=== PATIENT | female | born 1965 | race African-American/Black ===

== ENCOUNTER 2018-10-11 06:34 | Emergency (ER) | payer MEDICAID ==
[~2018-10-11] VITALS: Ht 165.1 cm; Wt 99.8 kg
[2018-10-11 08:22] VITALS: BP 134/75
== END 2018-10-11 09:55 | disposition left against medical advice (07) ==
LOC: ER 06:42
DX: K62.89 Other specified diseases of anus and rectum (principal); I10 Essential (primary) hypertension; Z90.49 Acquired absence of other specified parts of digestive tract; Z88.6 Allergy status to analgesic agent
CPT/HCPCS: 74176

== ENCOUNTER 2022-03-29 05:26 | Emergency (ER) | payer OTHER, MEDICAID ==
[~2022-03-29] VITALS: Ht 165.1 cm; Wt 91.0 kg
[2022-03-29] MEDS ORDERED: CYCL-837 PO (06:53)
[2022-03-29] MEDS ORDERED: KETOROLAC TROMETH 60MG/2ML VIAL IM ONE ×2 (07:00)
[2022-03-29 07:14] VITALS: BP 162/93
== END 2022-03-29 07:22 | disposition home or self-care (01) ==
LOC: ER 05:26
DX: M62.838 Other muscle spasm (principal); I10 Essential (primary) hypertension; Z76.0 Encounter for issue of repeat prescription; Z90.49 Acquired absence of other specified parts of digestive tract; Z88.5 Allergy status to narcotic agent
CPT/HCPCS: 96372; 99283; J1885